=== PATIENT | female | born 1965 ===

== ENCOUNTER 2019-01-26 22:06 | Emergency (ER) | payer SELFPAY ==
--- NOTE | 2019-01-26 23:22 | RAD ---
FXR Knee Lt 4 View STANDARD: 01/26/2019 10:52 PM CLINICAL INDICATION: Injury with pain Facet COMPARISON: None. FINDINGS: Fracture:No fracture. Arthropathy:Mild arthropathy. Incidental findings:None of significance. IMPRESSION: 1. No acute osseous abnormality.
[2019-01-26] MEDS ORDERED: Ibuprofen 800 MG TAB ONE (23:39)
== END 2019-01-26 23:53 | disposition home or self-care (01) ==
LOC: ERS 22:06
DX: S80.02XA Contusion of left knee, initial encounter (principal); E78.5 Hyperlipidemia, unspecified; F32.9 Major depressive disorder, single episode, unspecified; Z79.899 Other long term (current) drug therapy; W19.XXXA Unspecified fall, initial encounter